=== PATIENT | male | born 1955 | race Caucasian/White ===

== ENCOUNTER 2024-02-04 10:24 | Inpatient (IN) | payer MEDICARE, OTHER ==
[~2024-02-04] VITALS: Ht 165.1 cm; Wt 60.8 kg
[2024-02-04] MEDS ORDERED: MAG HYDROX/AL HYDROX/SIMETH 30 ML LIQUID UDC PO PRN (11:00)
[2024-02-04] MEDS ORDERED: DOCU250C14 PO (11:16)
[2024-02-04] MEDS ORDERED: VENL37.510 PO (11:26)
[2024-02-04] MEDS ORDERED: ASPI81TA31 PO (11:26)
[2024-02-04] MEDS ORDERED: OXYC20TA42 PO (11:26)
[2024-02-04] MEDS ORDERED: TRIA60LO14 TP (11:26)
[2024-02-04] MEDS ORDERED: MIRT-73 PO (11:26)
[2024-02-04] MEDS ORDERED: CLON2TAB11 PO (11:26)
[2024-02-04] MEDS ORDERED: PANT40TA49 PO (11:26)
[2024-02-04] MEDS ORDERED: LEVE1000 PO (11:26)
[2024-02-04] MEDS ORDERED: ALBU18HF2 IH (11:26)
[2024-02-04] MEDS ORDERED: QUET200T PO (11:26)
[2024-02-04] MEDS ORDERED: SENN8.6T19 PO (11:26)
[2024-02-04] MEDS ORDERED: CHOL100045 PO (11:26)
[2024-02-04] MEDS ORDERED: LAMO100T17 PO (11:26)
[2024-02-04] MEDS ORDERED: LEVO50TA8 PO (11:26)
[2024-02-04] MEDS ORDERED: SIMV-49 PO (11:26)
[2024-02-04] MEDS ORDERED: MONT10TA22 PO (11:26)
[2024-02-04] MEDS ORDERED: ALBUTEROL SULFATE 8 GM HFA.AER.AD IH PRN (13:00)
[2024-02-04] MEDS ORDERED: OXYCODONE HCL 20 MG PO PRN (13:00)
[2024-02-04] MEDS: SENNOSIDES 1 TABLET PO SCH (16:09)
[2024-02-04 16:12] VITALS: BP 134/51; TEMP 97.8; O2SAT 100
[2024-02-04] MEDS: levETIRAcetam 500 MG TABLET PO SCH (17:35)
[2024-02-04 20:00] VITALS: BP 137/80; TEMP 99; O2SAT 94
[2024-02-04] MEDS ORDERED: ZOLPIDEM 5 MG TABLET PO PRN (20:45)
[2024-02-04] MEDS: NICOTINE 21 MG/24HR PATCH TD SCH (21:05)
[2024-02-04] MEDS: LORAZEPAM 0.5 MG TABLET PO PRN (21:05)
[2024-02-04] MEDS: MONTELUKAST SODIUM 10 MG TABLET PO SCH (21:05)
[2024-02-04] MEDS: SIMVASTATIN 40 MG TABLET PO SCH (21:05)
[2024-02-04 21:51] VITALS: O2SAT 96
[2024-02-04] MEDS: ALBUTEROL SULFATE 2.5 MG/3 ML NEBU IH PRN (21:54)
[2024-02-05] MEDS: PANTOPRAZOLE SODIUM 40 MG TABLET.DR PO SCH (06:29)
[2024-02-05] MEDS: LEVOTHYROXINE SODIUM 50 MCG TABLET PO SCH (06:29)
[2024-02-05] MEDS: DOCUSATE SODIUM 250 MG CAPSULE PO SCH (09:00)
[2024-02-05] MEDS: ASPIRIN 81 MG TAB.CHEW PO SCH (09:04)
[2024-02-05] MEDS: CHOLECALCIFEROL 1,000 UNIT TABLET PO SCH (09:05)
[2024-02-05] MEDS: LORAZEPAM 1 MG TABLET PO PRN (10:11)
[2024-02-05] MEDS: busPIRone 10 MG TABLET PO SCH (12:14)
[2024-02-05 16:31] LABS: BILIRUBIN,DIRECT 0.8 mg/dL (0.0-0.2); BILIRUBIN,TOTAL 1.1 mg/dL (0.2-1.0); CALCIUM 8.3 mg/dL (8.5-10.1); CREATININE 0.9 mg/dL (0.6-1.3); POTASSIUM 4.8 mmol/L (3.5-5.1); TOTAL PROTEIN, SERUM 10.3 g/dL (6.4-8.2)
[2024-02-05 19:48] VITALS: BP 117/71; TEMP 98.1; O2SAT 94
[2024-02-05] MEDS: QUETIAPINE FUMARATE 200 MG TABLET PO SCH (20:44)
[2024-02-05] MEDS: ACETAMINOPHEN 325 MG TABLET PO PRN (20:45)
[2024-02-05] MEDS: TEMAZEPAM 7.5 MG CAPSULE PO PRN (22:39)
[2024-02-06] MEDS: SERTRALINE HCL 50 MG TABLET PO SCH (08:24)
[2024-02-06 08:37] VITALS: BP 105/67; TEMP 99; O2SAT 98
[2024-02-06 15:29] VITALS: BP 101/68; TEMP 99; O2SAT 98
[2024-02-06] MEDS: OLANZAPINE 10 MG VIAL IM ONE (17:28)
[2024-02-06 20:00] VITALS: BP 136/78; TEMP 97.4; O2SAT 95
[2024-02-07 07:51] VITALS: BP 113/68; TEMP 99; O2SAT 93
[2024-02-07 15:37] VITALS: BP 109/61; TEMP 99.8; O2SAT 96
[2024-02-07 23:54] VITALS: O2SAT 97
[2024-02-08] MEDS: THIAMINE HCL 100 MG TABLET PO SCH (08:42)
[2024-02-08] MEDS: MULTIVITAMINS,THERAPEUTIC TABLET PO SCH (08:44)
[2024-02-08] MEDS: FOLIC ACID 1 MG TABLET PO SCH (08:47)
[2024-02-08 16:10] VITALS: BP 121/76; TEMP 98.2; O2SAT 100
[2024-02-08 19:45] VITALS: BP 121/68; TEMP 98.2; O2SAT 100
[2024-02-08] MEDS: REMEDY ESSENTIAL ZINC PASTE 113 GM TOP SCH (20:37)
[2024-02-09 02:34] VITALS: O2SAT 97
[2024-02-09 08:12] VITALS: BP 103/63; TEMP 98.2; O2SAT 100
[2024-02-09] MEDS: levETIRAcetam 500 MG TABLET PO SCH (08:17)
[2024-02-09 12:00] VITALS: O2SAT 97
[2024-02-09 12:10] VITALS: O2SAT 99
[2024-02-09 12:19] LABS: ALBUMIN 3.2 g/dL (3.4-5.0); BILIRUBIN,TOTAL 0.3 mg/dL (0.2-1.0); CALCIUM 9.3 mg/dL (8.5-10.1); CREATININE 0.8 mg/dL (0.6-1.3); POTASSIUM 4.1 mmol/L (3.5-5.1); TOTAL PROTEIN, SERUM 7.6 g/dL (6.4-8.2)
[2024-02-09] MEDS ORDERED: TEMAZEPAM 7.5 MG CAPSULE PO PRN (14:15)
[2024-02-09 16:28] VITALS: BP 159/73; TEMP 98; O2SAT 100
[2024-02-09 20:00] VITALS: BP 131/74; TEMP 98.1; O2SAT 96
[2024-02-10] VITALS (8 sets, daily range): BP systolic 111–115; BP diastolic 68–77; TEMP 98.1–98.4; O2SAT 97–100
[2024-02-10] MEDS: GUAIFENESIN/DEXTROMETHORPHAN 5 ML UDC PO PRN (17:10)
[2024-02-11 05:48] VITALS: O2SAT 98
[2024-02-11 05:58] VITALS: O2SAT 100; O2SAT 99
[2024-02-11 07:53] VITALS: BP 106/57; TEMP 98; O2SAT 95
[2024-02-11] MEDS ORDERED: IPRATROPIUM BROMIDE 0.5 MG/2.5 ML NEBU NEB PRN (11:45)
[2024-02-11] MEDS ORDERED: ALBUTEROL SULFATE 2.5 MG/3 ML NEBU NEB PRN (12:00)
[2024-02-11 16:00] VITALS: BP 98/66; TEMP 98.2; O2SAT 95
[2024-02-11 20:00] VITALS: BP 109/71; TEMP 98; O2SAT 96
[2024-02-11] MEDS: TEMAZEPAM 15 MG CAPSULE PO PRN (22:13)
[2024-02-12 08:12] VITALS: BP 107/68; TEMP 98; O2SAT 98
== END 2024-02-12 13:30 | DRG 885 ==
LOC: GPS 10:26
PROVIDERS: ADMIT Psychiatry & Neurology Psychiatry; ATTEND Nurse Practitioner Acute Care
DX: F31.5 Bipolar disorder, current episode depressed, severe, with psychotic features (principal); R45.851 Suicidal ideations; Z59.02 Unsheltered homelessness; H91.93 Unspecified hearing loss, bilateral; F10.10 Alcohol abuse, uncomplicated; K70.10 Alcoholic hepatitis without ascites; J44.9 Chronic obstructive pulmonary disease, unspecified; E03.9 Hypothyroidism, unspecified; F41.9 Anxiety disorder, unspecified; G40.909 Epilepsy, unspecified, not intractable, without status epilepticus; I10 Essential (primary) hypertension; Z90.79 Acquired absence of other genital organ(s); E78.5 Hyperlipidemia, unspecified; Z79.890 Hormone replacement therapy; Z79.899 Other long term (current) drug therapy
CPT/HCPCS: 36415; 71045; 84443; 94640; 94664; 94760; J2358